=== PATIENT | male | born 1985 | race Two or more races ===

== ENCOUNTER 2020-10-30 19:44 | Emergency (ER) | payer OTHER ==
[~2020-10-30] VITALS: Ht 193 cm; Wt 108.9 kg
[2020-10-31 00:37] VITALS: BP 140/95
== END 2020-10-31 04:02 | disposition home or self-care (01) ==
LOC: ER 19:44
DX: S92.425A Nondisplaced fracture of distal phalanx of left great toe, initial encounter for closed fracture (principal); W01.0XXA Fall on same level from slipping, tripping and stumbling without subsequent striking against object, initial encounter; Y93.89 Activity, other specified; Y92.89 Other specified places as the place of occurrence of the external cause; Y99.8 Other external cause status
CPT/HCPCS: 73660; 99283; L3260